=== PATIENT | female | born 2000 | race Caucasian/White ===

== ENCOUNTER 2021-05-25 06:03 | Outpatient (CLI) | payer OTHER ==
[2021-05-25] VITALS (7 sets, daily range): BP systolic 94–113; BP diastolic 50–69; PULSE 16–88; TEMP 98
[~2021-05-25] VITALS: Ht 154.9 cm; Wt 60.9 kg
[2021-05-25] MEDS ORDERED: PRENATAL TABLET PO (06:38)
--- NOTE | 2021-05-25 09:15 | NUR ---
0800 REPORT RECIEVED BY Ming MERCADO RN AND CARE ASSUMED AT THIS TIME. SVE UNCHANGED. ORDERS FOR IVF PER DR MAURICIO. IV STARTED IN LEFT WRIST AND BLOOD DRAWN AT THIS TIME. LR BOLUS GIVEN.
--- NOTE | 2021-05-25 09:19 | NUR ---
0900 RESTS BETWEEN CONTRACTIONS. BUT CONTINUES TO BREATH THROUGH CONTRACTIONS. BOYFRIEND AT BEDSIDE
--- NOTE | 2021-05-25 10:05 | NUR ---
1000 SVE UNCHANGED AT THIS TIME
--- NOTE | 2021-05-25 10:32 | NUR ---
1020 PATIENT SCREAMS FROM ROOM. THIS NURSE AT BEDSIDE. ASK PATIENT IF CONTRACTIONS MORE INTENSE, SHE STATES NO THE SAME,IT JUST HURT. DR MAURICIO CALLED AND ORDERS TO DISMISS TO HOME SINCE NO CHANGE AFTER SEVERAL HOURS. GO HOME EAT, REST, TAKE WARM BATH AND IF CONTRACTIONS GET MORE INTENSE COME BACK TO HOSPITAL. DISCUSSED THIS WITH PATIENT AND BOYFRIEND. BOTH ARE OK WITH GOING HOME. BOTH AGREED WITH CALL OR RETURN IF GETS MORE INTENSE. IV DC'D SVE UNCHANGED. PATIENT DISMISSED.
== END 2021-05-25 10:45 | disposition home or self-care (01) ==
LOC: LDRO 06:03
DX: O47.1 False labor at or after 37 completed weeks of gestation (principal); Z3A.37 37 weeks gestation of pregnancy
CPT/HCPCS: J7120

== ENCOUNTER 2021-05-25 14:44 | Inpatient (IN) | payer OTHER ==
[~2021-05-25] VITALS: Ht 154.9 cm; Wt 60.9 kg
[2021-05-25] VITALS (15 sets, daily range): BP systolic 108–141; BP diastolic 55–81; PULSE 78–142; TEMP 97.9–98.8
[~2021-05-25 14:44] MED LIST: PRENATAL TABLET PO
[2021-05-25 15:27] LABS: BASO % 0.2 % (0.0-2.0); GRAN # 17.6 K/mm3 (1.4-6.5); GRAN % 85.1 % (42.2-75.2); HEMOGLOBIN 12.8 g/dl (12.0-15.0); LYMPH # 2.1 K/mm3 (1.2-3.4); MEAN CELL VOLUME 86 fl (80.0-95.0); MEAN CORPUSCULAR HEMOGLOBIN 30 pg (26-32); MEAN CORPUSCULAR HGB CONC 35 g/dl (33.0-37.0); MEAN PLATELET VOLUME 10.3 fl (7.4-10.4); MONO # 0.8 K/mm3 (0.1-0.6); MONO % 3.9 % (1.7-9.3); PLATELET COUNT 366 K/mm3 (130-400); RED BLOOD COUNT 4.25 M/mm3 (4.10-5.30); REDCELL DISTRIBUTION WIDTH-CV 12.7 % (11.5-14.5)
[2021-05-25 15:31] LABS: HEMATOCRIT 36.7 % (35.0-45.0)
--- NOTE | 2021-05-25 15:43 | NUR ---
1500 PATIENT HERE WITH COMPLAINTS THAT CONTRCTIONS HAVE GOT SEVERE, AND HAVING LOTS OD PRESSURE. EFM ON FHT 145 BABY VERY ACTIVE. ACCELERATIOSN NOTED. SVE 9/100/0 BULGY BAG NOTED. ASSESSMENT COMPLETED. 1502 DR MAURICIO CALLED AND UPDATED ON ALL ABOVE INFORMATION. ORDERS TO ADMIT FOR LABOR AND MAY HAVE EPIDURAL. IV STARTED IN LEFT WRIST LR BOLUS HUNG. LABS DRAWN AT THIS TIME. PAULA MONREAL CRNA CALLED FOR EPIDURAL PLACEMENT AT THIS TIME. PATIENT BREATHS THROUGH EACH CONTRACTION.
--- NOTE | 2021-05-25 15:47 | NUR ---
1510 CONTRACT RECRUITER AT BEDSIDE. PATIENT SITS UP ON EDGE OF BED FOR EPIDURAL PLACEMENT.SEE CONTRACT RECRUITER NOTES FOR QUESTIONS. PATIENT CRIES AND BREATHS THROUGH EACH CONTRACTIONS. ENCOURAGE PATIENT TO TAKE DEEP BREATHS. PATIENT TOLERATES WELL.
--- NOTE | 2021-05-25 15:55 | NUR ---
1520 SVE COMPLETE BULGY BAG PATIENT FEELING PRESUURE. DR LEONARDO CALLED AND UPDATED. DR WILL HEAD TO HOSPITAL NOW. PATIENT GETTING SOME RELIEF FROM EPIDURAL AT THIS TIME.
--- NOTE | 2021-05-25 15:58 | NUR ---
1531 DR LEONARDO HERE SVE /+1 AROM WITH AMNIOHOOK. LARGE AMOUNT OF CLEAR FLUID NOTED. NO ODOR. 1545 PATIENT WILL START PUSHING WITH CONTRACTIONS WITH Ming MERCADO RN ASSUMING CARE OF PATIENT AT THIS TIME. TOLERTES PUSHING WELL.
--- NOTE | 2021-05-25 16:32 | NUR ---
1632: PER OF VIABLE MALE INFANT AT THIS TIME. PLACED ON MATERNAL ABDOMEN, CARE ASSUMED BY DANNA CARROLL RN. CORD CLAMPED X2 AND CUT BY FOB. 1635: OF PLACENTA PER . PITOCIN INFUSING PER PROTOCOL. PT'S VITAL SIGNS STABLE. FUNDUS FIRM AT UMBILICUS, LOCHIA SCANT. NO CLOTS NOTED. PERINEUM INTACT FOLLOWING DELIVERY. EBL 150CC.
--- NOTE | 2021-05-25 16:45 | NUR ---
1615 PATIENT COMTINUES TO PUSH WITH EACH CONTRACTION WITH Ming MERCADO RN.
[2021-05-26 00:30] VITALS: BP 106/72; PULSE 100; TEMP 98
[2021-05-26 04:40] VITALS: BP 118/70; PULSE 99
[2021-05-26 09:30] VITALS: BP 106/64; PULSE 91; TEMP 97.8
--- NOTE | 2021-05-26 13:01 | NUR ---
Plate Setter offered congrats to patient.
[2021-05-26 14:00] VITALS: BP 102/60; PULSE 90
[2021-05-26 19:30] VITALS: BP 112/62; PULSE 88; TEMP 97.8
[2021-05-27 08:30] VITALS: BP 102/61; PULSE 77; TEMP 97.8
[2021-05-27] MEDS ORDERED: IBU800 M1 PO (10:29)
--- NOTE | 2021-05-27 16:00 | NUR ---
Discharge instructions and follow up care reviewed with pt and at the bedside. Both verbalized an understanding, agreed with the plan and states no questions or concerns at this time.
== END 2021-05-27 16:25 | disposition home or self-care (01) | DRG 807 ==
LOC: LDRO 14:44 → LDR 15:18 → OB 15:18
PROVIDERS: ADMIT Obstetrics & Gynecology
PROC: 10E0XZZ Delivery of Products of Conception, External Approach (ICD-10-PCS; principal; 2021-05-25)
PROC: 10907ZC Drainage of Amniotic Fluid, Therapeutic from Products of Conception, Via Natural or Artificial Opening (ICD-10-PCS; 2021-05-25)
DX: O71.82 Other specified trauma to perineum and vulva (principal); Z37.0 Single live birth; Z3A.37 37 weeks gestation of pregnancy
CPT/HCPCS: J2590; J7120

== ENCOUNTER 2021-11-07 08:45 | Emergency (ER) | payer OTHER ==
[~2021-11-07] VITALS: Ht 162.6 cm; Wt 49.1 kg
[~2021-11-07 08:45] MED LIST changes: +IBU800 M1 PO
[2021-11-07 09:04] VITALS: BP 108/70; TEMP 97.5
[2021-11-07 10:20] LABS: COLLECTION METHOD CLEAN CATCH
[2021-11-07 10:24] LABS: BASO % 0.3 % (0.0-2.0); EOS # 0.1 K/mm3 (0.0-0.7); EOS % 1.2 % (0.0-4.0); GRAN # 5.7 K/mm3 (1.4-6.5); GRAN % 62.3 % (42.2-75.2); HEMOGLOBIN 12.5 g/dl (12.0-15.0); LYMPH # 2.8 K/mm3 (1.2-3.4); LYMPH % 30.4 % (20.0-51.0); MEAN CELL VOLUME 84 fl (80.0-95.0); MEAN CORPUSCULAR HEMOGLOBIN 29 pg (26-32); MEAN CORPUSCULAR HGB CONC 34 g/dl (33.0-37.0); MEAN PLATELET VOLUME 9.7 fl (7.4-10.4); MONO # 0.5 K/mm3 (0.1-0.6); MONO % 5.7 % (1.7-9.3); PLATELET COUNT 342 K/mm3 (130-400); RED BLOOD COUNT 4.37 M/mm3 (4.10-5.30); REDCELL DISTRIBUTION WIDTH-CV 13.2 % (11.5-14.5)
[2021-11-07 10:53] LABS: HEMATOCRIT 36.9 % (35.0-45.0)
[2021-11-07 11:13] LABS: SQUAMOUS EPITHELIAL 0-2 /hpf (0-10); URINE BACTERIA Moderate /hpf (NONE SEEN)
[2021-11-07 11:15] LABS: URINE APPEARANCE Hazy (CLEAR/HAZY); URINE BLOOD 2+ (NEGATIVE); URINE COLOR Yellow (YELLOW); URINE GLUCOSE Negative (NEGATIVE); URINE KETONE Negative (NEGATIVE); URINE NITRATE Negative (NEGATIVE); URINE PROTEIN(semi-quant) Negative (NEGATIVE); URINE UROBILINOGEN 0.2 E.U/dL (0.2-1.0)
[2021-11-07] MEDS ORDERED: CEPHALEXIN500 M1 PO (11:31)
[2021-11-07 11:53] VITALS: PULSE 65
== END 2021-11-07 11:53 | disposition home or self-care (01) ==
LOC: COL.ER 08:45
PROVIDERS: Emergency Medicine
DX: N39.0 Urinary tract infection, site not specified (principal); N93.9 Abnormal uterine and vaginal bleeding, unspecified; N94.89 Other specified conditions associated with female genital organs and menstrual cycle; Z28.310 Unvaccinated for COVID-19